=== PATIENT | male | born 1980 | race American Indian/Alaskan Native ===

== ENCOUNTER 2016-11-28 15:31 | Emergency (ER) | payer SELFPAY ==
[2016-11-28 17:52] LABS: Urine Drugs of Abuse Note Disclamer
[2016-11-28 18:01] LABS: Hematocrit 44.9 % (35.5-45.6); Hemoglobin 14.8 gm/dl (11.8-15.2); Mean Corpuscular HGB Conc 33 % (32-34); Mean Corpuscular Hemoglobin 32 pg (28-32); Mean Corpuscular Volume 97 fl (84-94); Platelet Count 224 K/mm3 (140-440); Red Blood Count 4.65 M/mm3 (3.65-5.03); Red Cell Distribution Width 13.2 % (13.2-15.2); White Blood Count 6.6 K/mm3 (4.5-11.0)
[2016-11-28 18:13] LABS: Basophils % (Auto) 0.5 % (0.0-1.8); Eosinophils % (Auto) 0.6 % (0.0-4.3)
[2016-11-28 18:23] LABS: Anion Gap 23 mmol/L; BUN/Creatinine Ratio 7.14; Blood Urea Nitrogen 5 mg/dL (9-20); Carbon Dioxide 24 mmol/L (22-30); Chloride 94.5 mmol/L (98-107); Glucose 90 mg/dL (75-100); Sodium 137 mmol/L (137-145)
[2016-11-28] MEDS ORDERED: KEPPRA 1,000 MG in D5W 100 ML IV ONE (18:31)
--- NOTE | 2016-11-28 18:32 | Emergency Department Report ---
ED General Adult HPI - General Chief complaint: Seizure Stated complaint: SEIZURE Time Seen by Provider: 11/28/16 18:23 Source: patient, family, RN notes reviewed Mode of arrival: Ambulatory Limitations: No Limitations - History of Present Illness Initial comments: This is a 35-year-old male, previously unknown to me. Has a past medical history of seizure disorder. Takes Keppra 500 mg twice daily. Brought to the hospital by family for seizure-like activity. Patient is now back to baseline. He denies headache, neck pain, chest pain, abdominal pain and shortness of breath. He states compliance with his medications. Last seizure was a few months ago. He reports he does not drive. Denies irritative and obstructive urinary symptoms. Denies cough. Patient reports he does not consume cocaine or marijuana. There is no midline neck pain. -: Sudden Radiation: non-radiation Consistency: now resolved Improves with: none Worsens with: none Associated Symptoms: denies: confusion, chest pain, cough, diaphoresis, fever/ chills, headaches, loss of appetite, malaise, nausea/vomiting, rash, seizure, shortness of breath, syncope, weakness - Related Data Previous Rx's Medication Instructions Recorded Last Taken Type levETIRAcetam [Keppra TAB] 500 mg PO BID #60 tablet 11/28/16 Unknown Rx Allergies Allergy/AdvReac Type Severity Reaction Status Date / Time No Known Allergies Allergy Unverified 11/28/16 15:48 ED Review of Systems ROS: Stated complaint: SEIZURE Other details as noted in HPI Constitutional: denies: fever Eyes: denies: vision change ENT: denies: hearing loss Respiratory: denies: cough Cardiovascular: denies: chest pain Gastrointestinal: denies: abdominal pain Genitourinary: denies: urgency Musculoskeletal: denies: back pain Skin: denies: lesions Neurological: denies: weakness Psychiatric: denies: anxiety ED Past Medical Hx - Past Medical History Previous Medical History?: Yes Hx Seizures: Yes Additional medical history: Head injury - Surgical History Past Surgical History?: No - Social History Smoking Status: Current Every Day Smoker Substance Use Type: Alcohol, Marijuana, Prescribed - Medications Home Medications: Home Medications Medication Instructions Recorded Confirmed Last Taken Type levETIRAcetam [Keppra TAB] 500 mg PO BID #60 tablet 11/28/16 Unknown Rx ED Physical Exam - General Limitations: No Limitations General appearance: alert, in no apparent distress - Head Head exam: Present: atraumatic, normocephalic - Eye Eye exam: Present: normal appearance, PERRL, EOMI. Absent: nystagmus - ENT ENT exam: Present: normal exam, normal orophraynx, mucous membranes moist, normal external ear exam - Neck Neck exam: Present: normal inspection, full ROM. Absent: tenderness, meningismus - Respiratory Respiratory exam: Present: normal lung sounds bilaterally. Absent: respiratory distress, wheezes, rales, rhonchi, stridor, chest wall tenderness - Cardiovascular Cardiovascular Exam: Present: regular rate, normal rhythm, normal heart sounds. Absent: bradycardia, tachycardia, irregular rhythm, systolic murmur, diastolic murmur, rubs, gallop - GI/Abdominal GI/Abdominal exam: Present: soft, normal bowel sounds. Absent: distended, tenderness, guarding, rebound, rigid, pulsatile mass - Rectal Rectal exam: Present: deferred - Extremities Exam Extremities exam: Present: normal inspection, full ROM, normal capillary refill. Absent: tenderness, pedal edema, joint swelling, calf tenderness - Back Exam Back exam: Present: normal inspection, full ROM. Absent: tenderness, CVA tenderness (R), CVA tenderness (L), muscle spasm, paraspinal tenderness, vertebral tenderness - Neurological Exam Neurological exam: Present: alert, oriented X3, normal gait, other (Extraocular movements intact. Tongue midline. No facial droop. Facial sensation intact to light touch in the V1, V2, V3 distribution bilaterally. 5 and 5 strength in 4 extremities.. Sensation is intact to light touch in 4 extremities.). Absent : motor sensory deficit - Psychiatric Psychiatric exam: Present: normal affect, normal mood. Absent: homicidal ideation, suicidal ideation - Skin Skin exam: Present: warm, dry, intact, normal color. Absent: rash ED Course Vital Signs 11/28/16 11/28/16 11/28/16 15:44 15:55 16:01 Temperature 98.1 F Pulse Rate 81 89 Respiratory 16 12 19 Rate Blood Pressure 124/89 O2 Sat by Pulse 98 100 100 Oximetry 11/28/16 11/28/16 11/28/16 16:07 16:13 17:01 Temperature Pulse Rate 71 83 Respiratory 11 L 18 15 Rate Blood Pressure 115/75 115/75 O2 Sat by Pulse 92 98 99 Oximetry 11/28/16 11/28/16 11/28/16 18:00 18:45 19:16 Temperature Pulse Rate 72 Respiratory 13 Rate Blood Pressure 107/71 110/77 110/77 O2 Sat by Pulse 99 98 Oximetry 11/28/16 20:01 Temperature Pulse Rate 74 Respiratory 13 Rate Blood Pressure 110/77 O2 Sat by Pulse 97 Oximetry - Reevaluation(s) Reevaluation #1: 11/28/16 19:59 Differential diagnosis: Seizure secondary to medication noncompliance, seizure secondary to illegal drugs, history of cocaine abuse, history of marijuana abuse Assessment and plan: 35-year-old male with breakthrough seizure. He is alert and oriented 3, has a GCS of 15, with an NIH score of 0, and walks with a steady gait. He is clinically sober. While he denies ingestion of cocaine and marijuana, he does smell like marijuana , and a urine toxicology screen also suggest the presence of cocaine and marijuana. His laboratory studies were unremarkable, his compartments are soft, there is no midline neck pain. The patient was loaded empirically with 1 g of Keppra. He was instructed to avoid consumption of illegal drugs. He is instructed to avoid driving. He has been observed in the ER for a prolonged period of time without any episode of recurrent activity. He will be discharged with family. ED Medical Decision Making - Lab Data Result diagrams: 11/28/16 17:47 11/28/16 17:47 Vital Signs 11/28/16 11/28/16 11/28/16 15:44 15:55 16:01 Temperature 98.1 F Pulse Rate 81 89 Respiratory 16 12 19 Rate Blood Pressure 124/89 O2 Sat by Pulse 98 100 100 Oximetry 11/28/16 11/28/16 11/28/16 16:07 16:13 17:01 Temperature Pulse Rate 71 83 Respiratory 11 L 18 15 Rate Blood Pressure 115/75 115/75 O2 Sat by Pulse 92 98 99 Oximetry 11/28/16 18:00 Temperature Pulse Rate 72 Respiratory 13 Rate Blood Pressure 107/71 O2 Sat by Pulse 99 Oximetry Lab Results 11/28/16 11/28/16 11/28/16 Range/Units 17:34 17:47 17:47 WBC (4.5-11.0) K/mm3 RBC (3.65-5.03) M/mm3 Hgb (11.8-15.2) gm/dl Hct (35.5-45.6) % MCV (84-94) fl MCH (28-32) pg MCHC (32-34) % RDW (13.2-15.2) % Plt Count (140-440) K/mm3 Lymph % (Auto) (13.4-35.0) % [facility] % (Auto) (0.0-7.3) % Eos % (Auto) (0.0-4.3) % Baso % (Auto) (0.0-1.8) % Lymph # (1.2-5.4) K/mm3 [facility] # (0.0-0.8) K/mm3 Eos # (0.0-0.4) K/mm3 Baso # (0.0-0.1) K/mm3 Seg Neutrophils % (40.0-70.0) % Seg Neutrophils # (1.8-7.7) K/mm3 Sodium 137 (137-145) mmol/L Potassium 4.0 (3.6-5.0) mmol/L Chloride 94.5 L (98-107) mmol/L Carbon Dioxide 24 (22-30) mmol/L Anion Gap 23 mmol/L BUN 5 L (9-20) mg/dL Creatinine 0.7 L (0.8-1.5) mg/dL Estimated GFR > 60 ml/min BUN/Creatinine Ratio 7.14 % Glucose 90 (75-100) mg/dL Calcium 9.0 (8.4-10.2) mg/dL Total Creatine Kinase (55-170) units/L Urine Opiates Screen Presumptive negative Urine Methadone Screen Presumptive negative Ur Barbiturates Screen Presumptive negative Valproic Acid < 2.8 L (50-100) ug/mL Ur Phencyclidine Scrn Presumptive negative Ur Amphetamines Screen Presumptive negative U Benzodiazepines Scrn Presumptive negative Urine Cocaine Screen Presumptive positive U Marijuana (THC) Screen Presumptive positive Drugs of Abuse Note Disclamer Plasma/Serum Alcohol (0-0.07) gm% 11/28/16 11/28/16 11/28/16 Range/Units 17:47 17:47 17:47 WBC 6.6 (4.5-11.0) K/mm3 RBC 4.65 (3.65-5.03) M/mm3 Hgb 14.8 (11.8-15.2) gm/dl Hct 44.9 (35.5-45.6) % MCV 97 H (84-94) fl MCH 32 (28-32) pg MCHC 33 (32-34) % RDW 13.2 (13.2-15.2) % Plt Count 224 (140-440) K/mm3 Lymph % (Auto) 14.4 (13.4-35.0) % [facility] % (Auto) 10.7 H (0.0-7.3) % Eos % (Auto) 0.6 (0.0-4.3) % Baso % (Auto) 0.5 (0.0-1.8) % Lymph # 0.9 L (1.2-5.4) K/mm3 [facility] # 0.7 (0.0-0.8) K/mm3 Eos # 0.0 (0.0-0.4) K/mm3 Baso # 0.0 (0.0-0.1) K/mm3 Seg Neutrophils % 73.8 H (40.0-70.0) % Seg Neutrophils # 4.6 (1.8-7.7) K/mm3 Sodium (137-145) mmol/L Potassium (3.6-5.0) mmol/L Chloride (98-107) mmol/L Carbon Dioxide (22-30) mmol/L Anion Gap mmol/L BUN (9-20) mg/dL Creatinine (0.8-1.5) mg/dL Estimated GFR ml/min BUN/Creatinine Ratio % Glucose (75-100) mg/dL Calcium (8.4-10.2) mg/dL Total Creatine Kinase 262 H (55-170) units/L Urine Opiates Screen Urine Methadone Screen Ur Barbiturates Screen Valproic Acid (50-100) ug/mL Ur Phencyclidine Scrn Ur Amphetamines Screen U Benzodiazepines Scrn Urine Cocaine Screen U Marijuana (THC) Screen Drugs of Abuse Note Plasma/Serum Alcohol < 0.01 (0-0.07) gm% - Radiology Data Radiology results: report reviewed, image reviewed Noncontrast CAT scan of the head is negative. Critical care attestation.: If time is entered above; I have spent that time in minutes in the direct care of this critically ill patient, excluding procedure time. ED Disposition Clinical Impression: Seizure Disposition: DISCHARGED TO HOME OR SELFCARE Is pt being admited?: No Does the pt Need Aspirin: No Condition: Stable Instructions: Polysubstance Abuse (ED), Recurrent Seizures Adult (ED) Additional Instructions: Take your seizure medication as directed. Follow up with her primary care doctor or neurology specialist within the next week to [address] Colón is a local primary care doctor. Local neurology specialists including Dr. Colvin and Dr. Belle. Laboratory studies suggested the presence of cocaine and marijuana. Please do not consume illegal drugs. They are bad for your health. They may also make it more likely for you to have a seizure. Side effects of seizure includes stroke, heart attack, respiratory arrest, disability, paralysis, permanent loss of quality of life. therefore it is very important for you to her medications, and to avoid illegal drugs. Return to the ER right away with recurrent seizure, chest pain, shortness of breath, nausea vomiting, inability to tolerate liquid feeds. Prescriptions: levETIRAcetam [Keppra TAB] 500 mg PO BID #60 tablet Referrals: PRIMARY MD DEBO [Primary Care Provider] - 3-5 Days AARON COLÓN MD [Staff Physician] - 3-5 Days KYLEE COLVIN MD [Staff Physician] - 3-5 Days JAMISON BELLE MD [Staff Physician] - 3-5 Days
[2016-11-28] MEDS ORDERED: KEPPRA 1,000 MG/NS 0.75% 100ML 100 ML IV ONE (18:50)
--- NOTE | 2016-11-28 19:25 | Cat Scan Report ---
FINAL REPORT EXAM: CT HEAD/BRAIN WO CON HISTORY: seizure TECHNIQUE: CT head without contrast PRIORS: None. FINDINGS: Is encephalomalacia right frontal lobe. There is is mild ex vacuo dilatation frontal horn of the right lateral ventricle. No acute intra or extra-axial hemorrhage is identified. No evidence for midline shift or mass effect. No acute parenchymal abnormalities are identified. Bony calvarium appears intact. The mastoids and paranasal sinuses are unremarkable. IMPRESSION: Encephalomalacia right frontal lobe No acute intracranial findings
[2016-11-28 20:32] VITALS: BP 110/77
== END 2016-11-28 20:32 | disposition home or self-care (01) ==
LOC: ED 15:31
DX: G40.909 Epilepsy, unspecified, not intractable, without status epilepticus (principal); F17.200 Nicotine dependence, unspecified, uncomplicated; F12.10 Cannabis abuse, uncomplicated
CPT/HCPCS: 36415; 70450; 80048; 80164; 80307; 82550; 85025; 96365; 99284; G0480; J1953; 80320

== ENCOUNTER 2022-05-04 01:52 | Emergency (ER) | payer MEDICAID ==
[2022-05-04] MEDS ORDERED: levETIRAcetam 1000 MG/NS 0.75% 1,000 MG/100 ML BAG IV ONE (02:05)
--- NOTE | 2022-05-04 02:18 | Emergency Department Report ---
ED Seizure HPI - General Stated Complaint: AMS Time Seen by Provider: 05/04/22 02:05 Source: patient, EMS - History of Present Illness Initial Comments: Patient is 41 years old male with history of seizure on Keppra. Patient brought to the emergency room via EMS for evaluation after seizure. Family called EMS. Patient stated that last seizure was Sunday. He stated that he is compliant with his medication. He denied any head injury or any other injuries. No fever or chills. MD Complaint: seizure Trauma: No Seizure History: known seizure disorder Associated Symptoms: denies other symptoms - Related Data Previous Rx's Medication Instructions Recorded Last Taken Type levETIRAcetam [Keppra TAB] 500 mg PO BID #60 tablet 11/28/16 Unknown Rx levETIRAcetam [Keppra TAB] 500 mg PO BID #60 tablet 05/04/22 Unknown Rx Allergies Allergy/AdvReac Type Severity Reaction Status Date / Time No Known Allergies Allergy Unverified 11/28/16 15:48 ED Review of Systems ROS: Stated complaint: AMS Other details as noted in HPI Comment: All other systems reviewed and negative Constitutional: denies: chills, fever Respiratory: denies: cough, shortness of breath, SOB with exertion, SOB at rest Cardiovascular: denies: chest pain, palpitations Gastrointestinal: denies: abdominal pain, nausea, vomiting, diarrhea, constipation, hematemesis Musculoskeletal: denies: back pain Neurological: denies: headache, weakness, numbness, paresthesias, confusion, abnormal gait Psychiatric: denies: homicidal thoughts, suicidal thoughts ED Past Medical Hx - Past Medical History Previous Medical History?: Yes Hx Seizures: Yes Additional medical history: Head injury - Surgical History Past Surgical History?: No - Social History Smoking Status: Current Every Day Smoker Substance Use Type: Alcohol, Marijuana, Prescribed - Medications Home Medications: Home Medications Medication Instructions Recorded Confirmed Last Taken Type levETIRAcetam [Keppra TAB] 500 mg PO BID #60 tablet 11/28/16 Unknown Rx levETIRAcetam [Keppra TAB] 500 mg PO BID #60 tablet 05/04/22 Unknown Rx ED Physical Exam - General General appearance: alert, in no apparent distress - Head Head exam: Present: atraumatic, normocephalic, normal inspection - Eye Eye exam: Present: normal appearance - ENT ENT exam: Present: normal exam, normal orophraynx, mucous membranes moist - Neck Neck exam: Present: normal inspection, full ROM. Absent: tenderness, meningismus - Respiratory Respiratory exam: Present: normal lung sounds bilaterally - Cardiovascular Cardiovascular Exam: Present: regular rate, normal rhythm, normal heart sounds - GI/Abdominal GI/Abdominal exam: Present: soft, normal bowel sounds. Absent: distended, tenderness, guarding, rebound, rigid, organomegaly, mass, bruit, pulsatile mass - Extremities Exam Extremities exam: Present: normal inspection, full ROM, normal capillary refill. Absent: tenderness, pedal edema, joint swelling, calf tenderness - Back Exam Back exam: Present: normal inspection, full ROM. Absent: CVA tenderness (R), CVA tenderness (L) - Neurological Exam Neurological exam: Present: alert, oriented X3, CN II-XII intact - Psychiatric Psychiatric exam: Present: normal mood - Skin Skin exam: Present: warm, intact, normal color ED Course Vital Signs 05/04/22 02:15 Temperature 98.2 F Pulse Rate 85 Respiratory 16 Rate Blood Pressure 90/68 [Right] O2 Sat by Pulse 98 Oximetry ED Medical Decision Making - Lab Data Result diagrams: 05/04/22 02:13 05/04/22 02:13 - Medical Decision Making Patient is 41 years old male with history of seizure on Keppra. Patient brought to the emergency room via EMS for evaluation after seizure. Family called EMS. Patient stated that last seizure was Sunday. He stated that he is compliant with his medication. He denied any head injury or any other injuries. No fever or chills. Patient remained stable with a stable vital sign. No seizure activity observed in the ER. Patient received Keppra 1 g IV. Labs reviewed and is unremarkable. Patient given prescription for Keppra and advised to follow-up with his neurologist in the next 2 to 3 days and to return to the ER if he develop any new symptoms. Critical care attestation.: If time is entered above; I have spent that time in minutes in the direct care of this critically ill patient, excluding procedure time. ED Disposition Clinical Impression: Seizure Disposition: HOME / SELF CARE / HOMELESS Is pt being admited?: No Condition: Stable Instructions: Seizure, Adult Prescriptions: levETIRAcetam [Keppra TAB] 500 mg PO BID #60 tablet Referrals: PRIMARY CARE, [Primary Care Provider] - 3-5 Days DIANNA LANCASTER MD [Referring] - 3-5 Days
[2022-05-04 02:40] LABS: Basophils % (Auto) 0.7 % (0.0-1.8); Eosinophils # (Auto) 0.2 K/mm3 (0.0-0.4); Eosinophils % (Auto) 3.2 % (0.0-4.3); Hematocrit 33.3 % (35.5-45.6); Hemoglobin 11.1 gm/dl (11.8-15.2); Lymphocytes # (Auto) 1.7 K/mm3 (1.2-5.4); Lymphocytes % (Auto) 31.3 % (13.4-35.0); Mean Corpuscular HGB Conc 33 % (32-34); Mean Corpuscular Volume 102 fl (84-94); Monocytes # (Auto) 0.6 K/mm3 (0.0-0.8); Monocytes % (Auto) 10.8 % (0.0-7.3); Platelet Count 172 K/mm3 (140-440); Red Blood Count 3.27 M/mm3 (3.65-5.03); Red Cell Distribution Width 13.9 % (13.2-15.2)
[2022-05-04 02:51] LABS: Alanine Aminotransferase 84 units/L (7-56); Albumin 4.6 g/dL (3.9-5); BUN/Creatinine Ratio 13; Bilirubin,Direct 0.5 mg/dL (0-0.2); Blood Urea Nitrogen 12 mg/dL (9-20); Calcium 9.6 mg/dL (8.4-10.2); Hemolysis Index 2
[2022-05-04 06:45] VITALS: BP 110/68
== END 2022-05-04 06:46 | disposition home or self-care (01) ==
LOC: ED 01:52
DX: G40.909 Epilepsy, unspecified, not intractable, without status epilepticus (principal); F17.200 Nicotine dependence, unspecified, uncomplicated; F10.20 Alcohol dependence, uncomplicated; F12.90 Cannabis use, unspecified, uncomplicated
CPT/HCPCS: 36415; 80048; 80076; 85025; 96374; 99283; J1953